=== PATIENT | male | born 1980 | race Caucasian/White ===

== ENCOUNTER 2016-10-08 02:10 | Emergency (ER) | payer OTHER ==
--- NOTE | 2016-10-08 02:15 | EDPHY ---
H & P HPI/ROS: HPI CHIEF COMPLAINT: Dental pain HISTORY OF PRESENT ILLNESS: The patient very pleasant 36-year-old male, presents emergency room with lower posterior molar on the left side dental pain. Patient states this happened 24 hours ago. He has had persistent pain he did take ibuprofen which did help this pain slightly. However the pain became worse he could not sleep so decided come to the emergency room. Does have a local dentist. His post anterior molars on the left lower jaw line or decayed. There is no significant swelling. Denies fever, denies trouble swallowing Past Medical History: her significant medical history Past Surgical History: no significant surgical history Social History: Denies daily use drugs alcohol tobacco products Family History: Noncontributory ROS REVIEW OF SYSTEMS: A comprehensive 10 point review of systems is otherwise negative aside from elements mentioned in the history of present illness. Exam Constitutional triage nursing summary reviewed, vital signs reviewed, awake/ alert. Eyes normal conjunctivae and sclera, EOMI, PERRLA. HENT oropharynx: No signs of Facundo's, no thrush, no gumline abscess, uvula midline, tonsillar bed normal. Left lower posterior molars show decay. Most likely apical abscess or pulpitis. normal inspection, atraumatic, moist mucus membranes, no epistaxis, neck supple/ no meningismus, no raccoon eyes. Respiratory clear to auscultation bilaterally, normal breath sounds, no respiratory distress, no wheezing. Cardiovascular rate normal, regular rhythm, no murmur, no edema, distal pulses normal. Gastrointestinal soft, non-tender, no rebound, no guarding, normal bowel sounds, no distension, no pulsatile mass. Genitourinary no CVA tenderness. Musculoskeletal no midline vertebral tenderness, full range of motion, no calf swelling, no tenderness of extremities, no meningismus, good pulses, neurovascularly intact. Skin pink, warm, & dry, no rash, skin atraumatic. Neurologic awake, alert and oriented x 3, AAOx3, moves all 4 extremities equally, motor intact, sensory intact, CN II-XII intact, normal cerebellar, normal vision, normal speech. Psychiatric normal mood/affect. Heme/Lymph/Immune no lymphadenopathy. Differential Diagnosis: Includes but is not limited to in a particular, dental decay, pulpitis, apical abscess, gumline abscess, infection, cavity Medical Decision Making: this patient drove here I am unable to give him any narcotics as he does not have a ride home he will have a take home pack of [place] , be given his 1st dose of Pen-VK here and a prescription for the rest. He understands follow-up with Dentistry if he has any worsening pain, swelling, fever trouble swallowing needs return to the ER he understands. Source: Patient Departure - Departure Disposition: Home, Routine, Self-Care Clinical Impression: Pain, dental Condition: Good Instructions: Toothache (ED) Additional Instructions: 1. Please take antibiotic as prescribed 2. return emergency room if develops worsening symptoms questions concerns please follow up with your dentist. Referrals: QUEENIE SAMANIEGO [Primary Care Provider] - As per Instructions [facility] [Outside] - As per Instructions [facility] [Outside] - As per Instructions Dental [facility] [Outside] - As per Instructions Dental [facility] [Outside] - As per Instructions Dental [facility] [Outside] - As per Instructions
[2016-10-08] MEDS ORDERED: PENICILLIN VK 500 MG TAB PO ONE (02:17)
[2016-10-08] MEDS ORDERED: PENICILLIN VK 250MG PREPACK#6 BTL TAKEHOME ONE (02:17)
[2016-10-08] MEDS ORDERED: HYDROCOD/APAP 5/325 PREPACK#6 BTL TAKEHOME ONE (02:17)
[2016-10-08 02:25] VITALS: BP 149/89; PULSE 68; RESP 16; TEMP 98.2; O2SAT 95
== END 2016-10-08 02:40 | disposition home or self-care (01) ==
DX: K08.89 Other specified disorders of teeth and supporting structures (principal)